=== PATIENT | female | born 1980 | race Caucasian/White ===

== ENCOUNTER 2017-11-15 13:43 | Emergency (ER) | payer BC ==
[~2017-11-15] VITALS: Ht 157.5 cm; Wt 61.7 kg
[~2017-11-15 13:43] MED LIST: ATV/1 PO; IBUP-1050 PO
[2017-11-15 13:45] VITALS: TEMP 36.7; Ht 157.5 cm; Wt 61.7 kg
[2017-11-15] MEDS ORDERED: KETOROLAC TROMETHAMINE 30 MG/ML VIAL IV STA (14:00)
[2017-11-15] MEDS ORDERED: DiphenhydrAMINE HCL 50 MG/ML VIAL IV STA (14:00)
[2017-11-15] MEDS ORDERED: FLUO20CA35 PO (14:24)
[2017-11-15] MEDS ORDERED: MULTTAB58 PO (14:24)
[2017-11-15 14:33] LABS: BASO % 0.3 %; BASO ABS # 0.03 K/uL (0-0.2); EOS % 2.9 %; EOS ABS # 0.26 K/uL (0-0.5); HEMATOCRIT 41.7 % (37-47); HEMOGLOBIN 15.1 g/dL (12.0-16.0); IG# 0.03 K/uL (0.00-0.02); LYMPH % 39.6 %; LYMPH ABS # 3.58 K/uL (1.2-3.4); MEAN CELL VOLUME 92.9 fL (80-100); MEAN CORPUSCULAR HEMOGLOBIN 33.6 pg (25-34); MEAN CORPUSCULAR HGB CONC 36.2 g/dl (32-36); MONO % 6.9 %; MONO ABS # 0.62 K/uL (0.11-0.59); NEUT ABS # 4.53 K/uL (1.4-6.5); PLATELET COUNT 346 K/uL (130-400); RED CELL DISTRIBUTION WIDTH CV 12.6 % (11.5-14.5); RED CELL DISTRIBUTION WIDTH SD 42.5 fL (36.4-46.3); WHITE BLOOD COUNT 9.05 K/uL (4.8-10.8)
[2017-11-15 15:01] LABS: CALCIUM 8.8 mg/dl (8.5-10.1); CREATININE 0.8 mg/dl (0.60-1.20); POTASSIUM 3.6 mmol/L (3.5-5.1)
--- NOTE | 2017-11-15 15:07 | DIAGNOSTIC IMAGING REPORT ---
HEAD WITHOUT CONTRAST (CT) CLINICAL HISTORY: 37 years-old Female with ZABALA . Acute headache TECHNIQUE: Multiple axial CT images of the head were obtained without contrast. A dose lowering technique was utilized adhering to the principles of ALARA. CT DOSE: 537.48 mGy.cm COMPARISON: None. FINDINGS: No acute intracranial hemorrhage, midline shift, intracranial mass, hydrocephalus, territorial ischemia or abnormal extra-axial collection. 7 mm low attenuating focus of the left lentiform nucleus suggests prominent perivascular space with remote lacunar infarction felt to be less likely. The calvarium is intact. Mild mucosal thickening of the ethmoid air cells. Mastoid air cells and middle ear cavities are clear. Soft tissues and orbits are within normal limits. IMPRESSION: No acute intracranial abnormality. The above report was generated using voice recognition software. It may contain grammatical, syntax or spelling errors. Electronically signed by: Hemanth Fenton M.D. 11/15/2017 3:06 PM Dictated Date/Time: 11/15/2017 3:04 PM
[2017-11-15] MEDS ORDERED: CYCL10TA6 PO (15:44)
[2017-11-15 15:49] VITALS: BP 93/63; PULSE 76; O2SAT 97
--- NOTE | 2017-11-15 18:33 | EMERGENCY ROOM VISIT NOTE ---
History Report prepared by Aye: Ingrid Thomas Under the Supervision of: Dr. Moses Leon D.O. First contact with patient: 13:50 Chief Complaint: HEADACHE Stated Complaint: NECK AND HEADACHE History of Present Illness The patient is a 37 year old female who presents to the Emergency Room with complaints of constant headache starting yesterday. The patient states that the pain initially started at the base of her skull in her neck. Pain radiates into bilateral paraspinal region. Radiates up into her head from the base of her occiput. Pain is a 10 out of 10. Pain significantly worsens with any rotation of her head. She reports that she has a history of headaches, but this is the worst one she has ever had. She describes the pain as a vice manager athletics in the back of her neck. She states that it is worse with movement. She reports that when she tries to bend her head down, it feels tight like a rubber band. The patient complains of nausea, but believes it is from the pain. The patient denies anything making it better, weakness or numbness in her arms or legs, chest pain, shortness of breath, vomiting, diarrhea, and falls. Source of History: patient Onset: yesterday Position: head Quality: other (vice manager athletics on neck) Timing: constant Modifying Factors (Worsening): movement Associated Symptoms: + neck pain, + nausea, No chest pain, No SOB, No vomiting, No diarrhea, No weakness, No numbness Review of Systems See HPI for pertinent positives & negatives. A total of 10 systems reviewed and were otherwise negative. Past Medical & Surgical Medical Problems: (1) History of anxiety Surgical Problems: (1) Hx of appendectomy (2) Hx of section Family History Cancer Diabetes mellitus Heart disease Hypertension Social History Smoking Status: Current Every Day Smoker Alcohol Use: occasionally Marital Status: Housing Status: lives with family Occupation Status: employed Current/Historical Medications Scheduled Fluoxetine (Prozac), 20 MG PO DAILY Multiple Vitamin (Multivitamin), 1 TAB PO DAILY Scheduled PRN Cyclobenzaprine Hcl (Flexeril), 5 MG PO TID PRN for Muscle Spasms Allergies Coded Allergies: Penicillins (Verified Allergy, Unknown, ANAPHYLAXIS, 11/15/17) Physical Exam Vital Signs Date Time Temp Pulse Resp B/P (MAP) Pulse Ox O2 Delivery O2 Flow Rate FiO2 11/15/17 15:49 76 18 93/63 97 5/17/18 15:43 76 18 93/63 97 Room Air 11/15/17 13:45 36.7 101 18 132/87 96 Room Air Physical Exam GENERAL: Sitting up in bed, alert, well appearing, well nourished, no distress, non-toxic EYE EXAM: normal conjunctiva. OROPHARYNX: no exudate, no erythema, lips, buccal mucosa, and tongue normal and mucous membranes are moist NECK: supple, no nuchal rigidity, no adenopathy, acute reproducible tenderness at base of OA tracking down bilateral cervical paraspinal region into upper thoracic. LUNGS: Clear to auscultation. Normal chest wall mechanics HEART: no murmurs, S1 normal and S2 normal ABDOMEN: abdomen soft, non-tender, normo-active bowel sounds, no masses, no rebound or guarding. BACK: Back is symmetrical on inspection and there is no deformity, no midline tenderness, no CVA tenderness. SKIN: no rashes and no bruising UPPER EXTREMITIES: upper extremities are grossly normal. Flexions and extension of shoulder, elbows, wrist, and grasp 5/5 bilaterally. LOWER EXTREMITIES: No pitting edema. NEURO EXAM: Normal sensorium, cranial nerves II-XII grossly intact, normal speech, no gross weakness of arms. Medical Decision & Procedures ER Provider Diagnostic Interpretation: Radiology results as stated below per my review and the radiologist's interpretation: HEAD WITHOUT CONTRAST (CT) CLINICAL HISTORY: 37 years-old Female with ZABALA . Acute headache TECHNIQUE: Multiple axial CT images of the head were obtained without contrast. A dose lowering technique was utilized adhering to the principles of ALARA. CT DOSE: 537.48 mGy.cm COMPARISON: None. FINDINGS: No acute intracranial hemorrhage, midline shift, intracranial mass, hydrocephalus, territorial ischemia or abnormal extra-axial collection. 7 mm low attenuating focus of the left lentiform nucleus suggests prominent perivascular space with remote lacunar infarction felt to be less likely. The calvarium is intact. Mild mucosal thickening of the ethmoid air cells. Mastoid air cells and middle ear cavities are clear. Soft tissues and orbits are within normal limits. IMPRESSION: No acute intracranial abnormality. The above report was generated using voice recognition software. It may contain grammatical, syntax or spelling errors. Electronically signed by: Hemanth Fenton M.D. 11/15/2017 3:06 PM Dictated Date/Time: 11/15/2017 3:04 PM Laboratory Results 11/15/17 14:15 Red Blood Count 4.49, Mean Corpuscular Volume 92.9, Mean Corpuscular Hemoglobin 33.6, Mean Corpuscular Hemoglobin Concent 36.2, Mean Platelet Volume 10.0, Neutrophils (%) (Auto) 50.0, Lymphocytes (%) (Auto) 39.6, Monocytes (%) (Auto) 6.9, Eosinophils (%) (Auto) 2.9, Basophils (%) (Auto) 0.3, Neutrophils # (Auto) 4.53, Lymphocytes # (Auto) 3.58, Monocytes # (Auto) 0.62, Eosinophils # (Auto) 0.26, Basophils # (Auto) 0.03 11/15/17 14:15 Test 11/15/17 14:15 White Blood Count 9.05 K/uL (4.8-10.8) Red Blood Count 4.49 M/uL (4.2-5.4) Hemoglobin 15.1 g/dL (12.0-16.0) Hematocrit 41.7 % (37-47) Mean Corpuscular Volume 92.9 fL (80-100) Mean Corpuscular Hemoglobin 33.6 pg (25-34) Mean Corpuscular Hemoglobin Concent 36.2 g/dl (32-36) Platelet Count 346 K/uL (130-400) Mean Platelet Volume 10.0 fL (7.4-10.4) Neutrophils (%) (Auto) 50.0 % Lymphocytes (%) (Auto) 39.6 % Monocytes (%) (Auto) 6.9 % Eosinophils (%) (Auto) 2.9 % Basophils (%) (Auto) 0.3 % Neutrophils # (Auto) 4.53 K/uL (1.4-6.5) Lymphocytes # (Auto) 3.58 K/uL (1.2-3.4) Monocytes # (Auto) 0.62 K/uL (0.11-0.59) Eosinophils # (Auto) 0.26 K/uL (0-0.5) Basophils # (Auto) 0.03 K/uL (0-0.2) RDW Standard Deviation 42.5 fL (36.4-46.3) RDW Coefficient of Variation 12.6 % (11.5-14.5) Immature Granulocyte % (Auto) 0.3 % Immature Granulocyte # (Auto) 0.03 K/uL (0.00-0.02) Anion Gap 6.0 mmol/L (3-11) Est Creatinine Clear Calc Drug Dose 81.6 ml/min Estimated GFR () 107.6 Estimated GFR (Non- 92.9 BUN/Creatinine Ratio 11.3 (10-20) Calcium Level 8.8 mg/dl (8.5-10.1) Medications Administered Medications (Trade) Dose Ordered Sig/Arnaud Route Start Time Stop Time Status Last Admin Dose Admin Ketorolac Tromethamine (Toradol Inj) 30 mg NOW STAT IV 11/15/17 14:00 11/15/17 14:01 DC 11/15/17 14:29 30 MG Diphenhydramine HCl (Benadryl Inj) 50 mg NOW STAT IV 11/15/17 14:00 11/15/17 14:01 DC 11/15/17 14:27 50 MG ED Course ED COURSE: Vital signs were reviewed and showed tachycardia. The patients medical record was reviewed The above diagnostic studies were performed and reviewed. ED treatments and interventions as stated above. 1355: The patient was evaluated in room A2. A complete history and physical examination was performed. 1400: Ordered Benadryl Inj 50 mg IV, Toradol Inj 30 mg IV. 1528: Upon reevaluation, the patient is resting comfortably.I discussed my findings with the patient and she understands and agrees with the treatment plan. Based on the patients age, coexisting illnesses, exam and lab findings the decision to treat as an outpatient was made. The patient remained stable while under my care. The patient appeared well at the time of discharge. Medical Decision Differential diagnoses such as fracture, dislocation, neurovascular compromise, compartment syndrome, soft tissue injury, as well as others were entertained. Patient is a 37-year-old female that presents to ER for severe pain at the base of the neck. Pain is significantly worsened with any rotation of the neck. Patient does have a headache but notes the pain radiates from the base of the neck. CBC along with BMP was unremarkable. CT head was negative. Patient was completely neurologically intact. Patient was given IV Toradol and Benadryl along with fluids. She has significant improvement in her symptoms. I do favor this is all musculoskeletal however due to the severity of the headache recommended LP. She declined at the risk and benefits were explained at length. Following informed refusal of care patient was updated at bedside and discharged follow-up with PCP as an outpatient. Discussed with Pt concerning signs and symptoms to watch out for. Pt was instructed to follow up with their PCP and discussed with the patient their option to return to the ED at anytime for persistent or worsening symptoms. The appropriate anticipatory guidance and out-patient management, including indications for return to the emergency department, were explained at length to the patient and understood. Medication Reconcilliation Current Medication List: was personally reviewed by me Blood Pressure Screening Patient's blood pressure: Normal blood pressure Blood pressure disposition: Did not require urgent referral Impression Primary Impression: Neck pain Additional Impression: Head ache Scribe Attestation The scribe's documentation has been prepared under my direction and personally reviewed by me in its entirety. I confirm that the note above accurately reflects all work, treatment, procedures, and medical decision making performed by me. Departure Information Dispostion Home / Self-Care Prescriptions Cyclobenzaprine Hcl (FLEXERIL) 10 Mg Tab 5 MG PO TID Y for Muscle Spasms, #21 TAB Prov: Moses Leon, DO 11/15/17 Referrals Fiona Carr (PCP) Forms HOME CARE DOCUMENTATION FORM, IMPORTANT VISIT INFORMATION Patient Instructions My [facility] Additional Instructions Please follow up with your primary care doctor with in the next 24 hours. Any worsening of your symptoms, please return to the ED immediately. This includes any fevers greater than 100.4, worsening pain, chest pain, shortness breath, persistent nausea, vomiting, unable to eat or drink, or any other concerning signs or symptoms from your standpoint. You were given medications during this visit that will inhibit your ability to drive, operate machinery and work. Please do NOT drive, operate machinery or work for the next 12hrs. You were also given a prescription for a narcotic/ flexeril. While taking this medication you should also not drive, operate machinery and or work. Problem Qualifiers Additional Impression: Head ache Headache type: unspecified Headache chronicity pattern: acute headache Intractability: not intractable Qualified Codes: R51 - Headache
== END 2017-11-15 15:20 | disposition home or self-care (01) ==
LOC: C.EDB 13:44 → C.EDA 15:20
DX: M54.2 Cervicalgia (principal); R51 Headache; R00.0 Tachycardia, unspecified; F17.200 Nicotine dependence, unspecified, uncomplicated; Z79.899 Other long term (current) drug therapy; Z88.0 Allergy status to penicillin